=== PATIENT | male | born 1965 | race Caucasian/White ===

== ENCOUNTER → 2022-01-31 | Outpatient (CLI) | payer BC, OTHER ==
[~2022-01-31] MED LIST: ACHD5005 PO; DOCU-143 PO
--- NOTE | 2022-01-31 13:19 | Diagnostic Imaging Report ---
INDICATION: Bilateral leg pain. History of previous tobacco use. Lower extremity claudication symptoms. Hypertension.. TECHNIQUE: Segmental pulse pressures were performed of the upper and lower extremities. FINDINGS: Resting Doppler Blood Pressures RIGHT Brachial: 146 mmHg Ankle (Posterior Tibial): 196 mm Hg Index: 1.34 Ankle (Dorsalis Pedis): 194 mm Hg Index: 1.33 LEFT Brachial: 146 mmHg Ankle (Posterior Tibial): 187 mm Hg Index: 1.28 Ankle (Dorsalis Pedis): 155 mm Hg Index: 1.06 IMPRESSION: Normal bilateral ankle-brachial indices as above. Ankle-Brachial Index Diagnosis/Interpretation <=0.90 Peripheral Arterial Disease 0.91-0.99 Borderline 1.00-1.40 Normal >1.40 Concern for noncompressible arteries, (assoc with Diabetes Mellitus) Dictated by: Dictated on workstation # [id number]
== END ==
LOC: RAD 10:45
PROVIDERS: ATTEND Nurse Practitioner Family
DX: M79.604 Pain in right leg (principal); M79.605 Pain in left leg; I10 Essential (primary) hypertension; Z87.891 Personal history of nicotine dependence
CPT/HCPCS: 93922